=== PATIENT | male | born 1990 | race Two or more races ===

== ENCOUNTER 2024-04-04 11:42 | Emergency (ER) | payer BC, OTHER ==
[~2024-04-04] VITALS: Ht 170.2 cm; Wt 97.0 kg
--- NOTE | 2024-04-04 13:50 | DVH ---
CHEST RADIOGRAPH Indication: cough Technique: Single frontal view of the chest was obtained Comparison: None FINDINGS: Lines and Tubes: None Lungs: No focal consolidation. Pleura: No effusion.No pneumothorax. Cardiomediastinal contours: Unremarkable Pulmonary vasculature: Within normal limits. Bones: No acute osseous abnormality. IMPRESSION: 1. No acute cardiopulmonary disease. HS:Y
--- NOTE | 2024-04-04 14:08 | ED.PDOC ---
SOB-HPI HPI Comments 33 year old male presents to the ED with chief complaint of cough and HTN. Patient reports that he has been experiencing a chronic dry cough and nasal congestion for the past 4-5 months. Patient relays that it has worsened over the past 3 days. Patient states he has history of HTN, but has not been taking his medication. Patient notes when he visited earlier today, he was given a dose of Cozaar and advised to come to the ED for further evaluation due to his BP. Patient's BP in triage was noted to be 156/117. Patient denies any headache, chest pain, SOB, dizziness, fever, or chills. Chief Complaint: High Blood Pressure Time Seen by MD: 14:04 Primary Care Provider: NONE Reviewed notes: Nurses Notes, Medications, Allergies Information Source: Patient Mode of Arrival: Ambulatory Severity: Mild Timing: Months Duration: Since onset Context: At Rest PE Risk Factors: None History of: None Prehospital treatment: Other (Steroid inhaler) Modifying Factors: Inhaler Associated Signs and Symptoms: Cough, Nasal Congestion If cough with SOB: Non-Productive Past Medical History PAST MEDICAL HISTORY: HTN Surgical History: Denies all surgeries Family History Family History: Reviewed,noncontributory to illness Social History Smoker: Non-Smoker Alcohol: Denies ETOH Use Drugs: Denies Drug Use Lives In: Home Constitutional: denies: chills, diaphoresis, fatigue, fever, malaise, sweats, weakness, others EENTM: reports: nose congestion; denies: blurred vision, double vision, ear bleeding, ear discharge, ear drainage, ear pain, ear ringing, eye pain, eye redness, hearing loss, mouth pain, mouth swelling, nasal discharge, nose bleeding, nose pain, photophobia, tearing, throat pain, throat swelling, voice changes, others Respiratory: reports: cough; denies: hemoptysis, orthopnea, SOB at rest, shortness of breath, SOB with excertion, stridor, wheezing, others Cardiovascular: denies: chest pain, dizzy spells, diaphoresis, Dyspnea on exertion, edema, irregular heart beat, left arm pain, lightheadedness, palpitations, PND, syncope, others Gastrointestinal: denies: abdomen distended, abdominal pain, blood streaked bowels, constipated, diarrhea, dysphagia, difficulty swallowing, hematemesis, melena, nausea, poor appetite, poor fluid intake, rectal bleeding, rectal pain, vomiting, others Genitourinary: denies: burning, dysuria, flank pain, frequency, hematuria, incontinence, penile discharge, penile sore, pain, testicle pain, testicle sw elling, urgency, others Neurological: denies: dizziness, fainting, headache, left sided numbness, left sided weakness, numbness, paresthesia, pre-existing deficit, right sided numbness, right sided weakness, seizure, speech problems, tingling, tremors, weakness, others Musculoskeletal: denies: back pain, gout, joint pain, joint swelling, muscle pain, muscle stiffness, neck pain, others Integumetry: denies: bruises, change in color, change in hair/nails, dryness, laceration, lesions, lumps, rash, wounds, others Allergic/Immunocompromised: denies: Difficulty Healing, Frequent Infections, Hives, Itching, others Hematologic/Lymphatic: denies: anemia, blood clots, easy bleeding, easy bruising, swollen glands, others Endocrine: denies: excessive hunger, excessive sweating, excessive thirst, excessive urination, flushing, intolerance to cold, intolerance to heat, unexplained weight gain, unexplained weight loss, others Psychiatric: denies: anxiety, bipolar disorder, depression, hopeless, panic disorder, schizophrenia, sleepless, suicidal, others All Other Systems: Reviewed and Negative Physical Exam General Appearance: No Apparent Distress, Obese HEENT: Other (pupils symmetric, no facial asymmetry, moist mucous membranes) Neck: Full Range of Motion, Normal Inspection Respiratory: Lungs Clear, No Accessory Muscle Use, No Respiratory Distress, Normal Breath Sounds Cardiovascular: No Edema, No JVD, Regular Rate/Rhythm Breast Exam: Deferred Gastrointestinal: Non Tender, Soft Genitalia: Deferred Pelvic: Deferred Rectal: Deferred Extremities: Normal inspection, Normal range of motion, Non-tender, No pedal edema Neurologic: Alert (Oriented x4), Normal Affect, Normal Mood, Other (Ambulatory without difficulty. No gross focal deficit.) Cerebellar Function: NOT DONE Reflexes: NOT DONE Skin: Dry, Normal Color, Warm Lymphatic: NOT DONE Was a procedure done? Was a procedure done?: No Differential Dx Differential Diagnosis: Asthma, Bronchitis, CHF, COPD, Dysrhythmia, Hypertension, Myocardial infarction X-Ray, Labs, Meds, VS Vital Signs Date Time Temp Pulse Resp B/P (MAP) Pulse Ox O2 Delivery O2 Flow Rate FiO2 04/04/24 12:05 98.1 112 16 159/111 (127) 97 156/111 (126) Lab Test 04/04/24 14:40 04/04/24 13:38 Range/Units Troponin I High Sensitivity < 3 L < 3 L </=54 ng/L White Blood Count 11.3 H 4.4-10.8 10^3/uL Red Blood Count 5.72 4.5-5.90 10^6/uL Hemoglobin 16.4 13.5-17.5 g/dL Hematocrit 48.5 41.0-53.0 % Mean Corpuscular Volume 84.8 80.0-100.0 fL Mean Corpuscular Hemoglobin 28.6 28.0-32.0 pg Mean Corpuscular Hemoglobin Concent 33.7 32.0-36.0 g/dL Red Cell Distribution Width 13.4 11.8-14.3 % Platelet Count 228 140-450 10^3/uL Mean Platelet Volume 9.1 6.9-10.8 fL Neutrophils (%) (Auto) 71.7 37.0-80.0 % Lymphocytes (%) (Auto) 16.6 10.0-50.0 % Monocytes (%) (Auto) 5.8 0.0-12.0 % Eosinophils (%) (Auto) 5.7 0.0-7.0 % Basophils (%) (Auto) 0.2 0.0-2.0 % Neutrophils # (Auto) 8.1 1.6-8.6 10 ^3/uL Lymphocytes # (Auto) 1.9 0.4-5.4 10 ^3/uL Monocytes # (Auto) 0.7 0-1.3 10 ^3/uL Eosinophils # (Auto) 0.6 0-0.8 10 ^3/uL Basophils # (Auto) 0 0-0.2 10 ^3/uL Nucleated Red Blood Cells 0.1 % Sodium Level 137 136-145 mmol/L Potassium Level 4.2 3.5-5.1 mmol/L Chloride Level 102 98-107 mmol/L Carbon Dioxide Level 26 20-31 mmol/L Anion Gap 9 5-15 Blood Urea Nitrogen 10 9-23 mg/dL Creatinine 1.03 0.700-1.30 mg/dL Glomerular Filtration Rate Calc 100 >90 mL/min BUN/Creatinine Ratio 9.7 L 10.0-20.0 Serum Glucose 97 74-106 mg/dL Calcium Level 11.3 H 8.7-10.4 mg/dL B-Type Natriuretic Peptide 1.65 0-100 pg/mL Chest XR: FINDINGS: Lines and Tubes: None Lungs: No focal consolidation. Pleura: No effusion.No pneumothorax. Cardiomediastinal contours: Unremarkable Pulmonary vasculature: Within normal limits. Bones: No acute osseous abnormality. IMPRESSION: 1. No acute cardiopulmonary disease. X-Ray, Labs, Meds, VS Comment 33-year-old male with history of hypertension, noncompliant with blood pressure medication, referred by urgent care for elevated blood pressure. Patient also reports ongoing cough, nasal congestion for the past 5 months. Vitals remarkable for BP 159/111 , heart rate 112 Exam unremarkable Rhythm strip independently interpreted by me: Sinus tach, rate 112, no ectopy. Chest x-ray unremarkable CBC remarkable for WBC 11.3, basic metabolic panel, BNP and serial troponins unremarkable for any abnormality of acute significance Patient was treated with p.o. Cozaar at urgent care. On attempts to re-evaluate the patient, he did not answer from the waiting room or from outside when called. We were unable to repeat his blood pressure measurement. It was assumed the patient had eloped from the emergency department. Antibiotics to treat possible bronchitis/sinusitis, a steroid inhaler and p.o. prednisone were prescribed. At 4:34 p.m., the patient was located. Blood pressure was normal, and the patient was asymptomatic. He will be discharged. Images Reviewed?: Images reviewed and evaluated by me Time of 1ST Reevaluation: 15:04 Reevaluation 1ST: Unchanged Patient Education/Counseling: Diagnosis, Treatment Family Education/Counseling: No Family Present Departure 1 Departure Time of Disposition: 15:33 Impression: Primary Impression: Accelerated hypertension Additional Impression: Chronic bronchitis Qualified Codes: J42 - Unspecified chronic bronchitis Disposition: 01 HOME / SELF CARE / HOMELESS Condition: Stable Additional Instructions: Your blood tests were unremarkable. Your chest x-ray was normal. Your EKG was unremarkable. I have prescribed antibiotics and steroids to treat your cough and congestion. Follow-up with your primary doctor in 1-2 days. Resume your blood pressure medications as directed. e-Prescriptions Prednisone (Prednisone) 20 Mg Tab 40 MG PO DAILY for 3 Days, #60 MG Prov: BREANA LOMELI MD 04/04/24 Fluticasone Propionate (Inhala (Fluticasone Propionate Di) 100 Mcg/Act Aer 100 MCG IN DAILY PRN, #1 AER Prov: BREANA LOMELI MD 04/04/24 Amoxicillin & Pot Clavulanate (AUGMENTIN TABLET) 875 Mg Tb 875 MG PO BID for 10 Days, #20 TAB Prov: BREANA LOMELI MD 04/04/24 Discharged With: Self Critical Care Note Critical Care Time?: No Stability Stability form required: No Heart Score Heart Score: Heart Score Response (Comments) Value History N/A 0 EKG N/A 0 Age N/A 0 Risk Factors N/A 0 Troponin N/A 0 Total 0 I personally scribed for BREANA LOMELI MD ([email or web address]) on 04/04/24 at 14:08. Electronically submitted by Nilesh Aviles ([email or web address]). I personally scribed for BREANA LOMELI MD ([email or web address]) on 04/04/24 at 14:31. Electronically submitted by Nilesh Aviles ([email or web address]). BREANA LOMELI MD Apr 04, 2024 14:08
[2024-04-04 14:11] LABS: Basophils # (auto) 0 10 ^3/uL (0-0.2); Basophils % (auto) 0.2 % (0.0-2.0); Eosinophils # (auto) 0.6 10 ^3/uL (0-0.8); Eosinophils % (auto) 5.7 % (0.0-7.0); Hematocrit 48.5 % (41.0-53.0); Hemoglobin 16.4 g/dL (13.5-17.5); Lymphocytes # (auto) 1.9 10 ^3/uL (0.4-5.4); Lymphocytes % (auto) 16.6 % (10.0-50.0); Mean Corpuscular Hemoglobin 28.6 pg (28.0-32.0); Mean Corpuscular Hgb Conc. 33.7 g/dL (32.0-36.0); Mean Corpuscular Volume 84.8 fL (80.0-100.0); Monocytes # (auto) 0.7 10 ^3/uL (0-1.3); Monocytes % (auto) 5.8 % (0.0-12.0); Neutrophils # (auto) 8.1 10 ^3/uL (1.6-8.6); Neutrophils % (auto) 71.7 % (37.0-80.0); Nucleated Red Blood Cells % 0.1 %; Platelet Count (auto) 228 10^3/uL (140-450); Red Blood Cells 5.72 10^6/uL (4.5-5.90); Red Cell Distribution Width 13.4 % (11.8-14.3); White Blood Cell 11.3 10^3/uL (4.4-10.8)
[2024-04-04 14:23] LABS: Chloride 102 mmol/L (98-107); Potassium 4.2 mmol/L (3.5-5.1); Sodium 137 mmol/L (136-145)
[2024-04-04 14:24] LABS: Anion Gap 9 (5-15); Carbon Dioxide 26 mmol/L (20-31)
[2024-04-04 14:29] LABS: BUN/Creatinine Ratio 9.7 (10.0-20.0); Blood Urea Nitrogen 10 mg/dL (9-23); Glucose 97 mg/dL (74-106)
[2024-04-04 14:31] LABS: Calcium 11.3 mg/dL (8.7-10.4)
[2024-04-04] MEDS ORDERED: PRED20TA2 PO (15:37)
[2024-04-04] MEDS ORDERED: AUG875T PO (15:37)
[2024-04-04] MEDS ORDERED: FLUT100A7 IN (15:37)
[2024-04-04 16:39] VITALS: BP 122/79; PULSE 110; RESP 15; TEMP 98; O2SAT 100
== END 2024-04-04 16:41 | disposition home or self-care (01) ==
LOC: ER 11:42
DX: I10 Essential (primary) hypertension (principal); J42 Unspecified chronic bronchitis; Z20.822 Contact with and (suspected) exposure to COVID-19
CPT/HCPCS: 36415; 71045; 80048; 83880; 84484; 85025